=== PATIENT | female | born 1965 | race Caucasian/White ===

== ENCOUNTER 2020-08-17 08:34 | Outpatient (REF) | payer BC, SELFPAY ==
--- NOTE | 2020-08-17 08:40 | XR_ITS ---
EXAMINATION: XR CERVICAL SPINE CLINICAL INFORMATION: Neck pain. COMPARISON: None TECHNIQUE: 3 views of the cervical spine were obtained. FINDINGS: There is mild straightening of cervical lordosis. The vertebral heights and alignment is normal. Loss of C3-C4, C4-C5, C5-C6 and C6-C7 disc heights with mild ventral spondylosis C3-C4 through C6-C7 disc levels. No acute fracture, dislocation or lytic process seen. The prevertebral soft tissues are normal. XR/XR cervical spine 2V IMPRESSION: Degenerative disc changes cervical spine without any visible acute fracture, dislocation or subluxation. There is mild ventral spondylosis throughout cervical spine. No visible acute fracture or dislocation seen.
== END 2020-08-17 08:35 | disposition home or self-care (01) ==
LOC: HO.HMGCX 08:34
PROVIDERS: PCP Nurse Practitioner Family; Visit Provider Nurse Practitioner Family
DX: M50.90 Cervical disc disorder, unspecified, unspecified cervical region (principal)
CPT/HCPCS: 72040

== ENCOUNTER 2020-11-03 07:00 | Outpatient (RCR) | payer BC, SELFPAY ==
--- NOTE | 2020-09-30 12:52 | MHC.PT.EP ---
[facility] [place] Office [place] [facility] Office [address] [phone] F: [phone] F: [phone] F: [phone] F: [phone] Physical Therapy Plan of Care Date of Evaluation: 09/30/20 Date of Surgery: n/a Diagnosis: cervical pain with evidence of disc disease Assessment: Patient is a 55 year old R handed female who presents with s/s consistent with cervical pain/radiculopathy, DDD. 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 Patient past medical history is non-contributory. Current impairments include pain, ROM, strength, posture, activity tolerance and functional mobility. Functional limitations include decreased ability to sit, work at computer, sleep, and perform weight bearing activities.. Patient is motivated with good rehab potential. Skilled PT will address impairments and functional limitations in order to achieve goals. Frequency and Duration: The patient will be seen 2x/week for 6 weeks Short Term Goals: I with hEP - 2 weeks centralize s/s - 3 weeks improve postural awareness - 3 weeks comfort a cranial midline - 3 weeks [facility] [employer] Goals: AROM rotation symmetrical - 5 weeks pain free ADLs, exercise/snowshoeing - 6 weeks back to PLOF - 6 weeks Treatment Plan: Modalities to reduce pain, spasms and effusion. Manual therapy to restore motion and function. Therapeutic exercise to improve strength and flexibility. Neuromuscular re-education for posture and balance. Therapeutic activities to return to functional activities of daily living. Electronically signed by: Amando Shultz, PT Please sign and return to therapist. Thank you for your referral.
--- NOTE | 2020-12-10 10:36 | MHC.PT.DC ---
[facility] [place] Office [place] Office [place] Office [address] Rajesh Diaz 140 [facility] [phone] F: [phone] F: [phone] F: [phone] F: [phone] Physical Therapy Discharge Report Diagnosis: cervical pain with evidence of disc disease Date of Surgery: n/a Date of Evaluation: 09/30/20 Date of Discharge: 11/03/20 Treatments to Date: 10 Cancellations to Date: 0 No Shows to Date: Discharge Status: Achieved Goals Improved Function Independent with HEP Discharge Summary: Pt progressed well over the course of skilled PT making progress on impairments and functional limitations resulting in an improved quality of life. Pt is I with HEP and appropriate to d/c to HEP at this time. Electronically signed by: Amando Shultz, PT Please sign and return to therapist. Thank you for your referral.
== END 2020-12-10 10:37 | disposition home or self-care (01) ==
LOC: HO.PTCHIC 07:00
PROVIDERS: PCP Nurse Practitioner Family; Visit Provider Nurse Practitioner Family
DX: M50.90 Cervical disc disorder, unspecified, unspecified cervical region (principal); M54.12 Radiculopathy, cervical region
CPT/HCPCS: 97110; 97140; 97161